=== PATIENT | female | born 1945 | race Caucasian/White ===

== ENCOUNTER → 2016-06-09 | Outpatient (CLI) | payer MEDICARE ==
--- NOTE | 2016-06-09 14:35 | Diagnostic Imaging Report ---
PROCEDURE: US Bilateral lower extremity arterial. TECHNIQUE: Multiple real-time grayscale images are obtained through both lower extremity arterial systems with color Doppler imaging and color Doppler spectral analysis. INDICATION: Cramping in the upper legs worse on the left side. FINDINGS: Grayscale images demonstrate minimal atherosclerotic plaque in the femoropopliteal segments seen bilaterally. Color Doppler demonstrates patency of the vessels from the common femoral to the dorsalis pedis and posterior tibial arteries on both sides. On the right side, there are biphasic waveforms throughout with transition to monophasic waveforms in the dorsalis pedis. There is increased velocity to 280 cm/s in the mid right SFA compatible with focal moderate stenosis. The velocities in the left lower extremity range from 111 to 194 cm/s. There are biphasic waveforms seen throughout. IMPRESSION: Elevated velocity in the mid right SFA suggestive of underlying moderate focal stenosis. There are biphasic waveforms seen throughout the vessels bilaterally with transition to monophasic waveform in the right dorsalis pedis artery. Dictated by: Dictated on workstation # [id number]
== END ==
LOC: RAD 11:53
PROVIDERS: ATTEND Family Medicine
DX: I70.213 Atherosclerosis of native arteries of extremities with intermittent claudication, bilateral legs (principal)
CPT/HCPCS: 93925

== ENCOUNTER 2018-01-18 12:04 | Emergency (ER) | payer MEDICARE ==
[~2018-01-18] VITALS: Ht 175.3 cm; Wt 67.6 kg
--- OUTSIDE RECORDS SUMMARY | 2018-01-18 12:08 | XMS REPORT ---
Author Author SLICK WINKLRE Organization [facility] Address [address] [place] [address] Care Team Providers Care Security Systems Engineer Name Role Phone SLICK WINKLER Unavailable PROBLEMS Type Condition ICD9-CM Code [id number] Code Onset Dates Condition Status SNOMED Code Problem Generalized anxiety disorder F41.1 Active 84435399 Problem PTSD (post-traumatic stress disorder) F43.10 Active 90833346 Problem Moderate episode of recurrent major depressive disorder F33.1 Active [id number] ALLERGIES No Information ENCOUNTERS Encounter Location Date Diagnosis [facility] [address], [place] [address] Nov, 2017 [facility] [address] [place] [phone] Oct, Moderate episode of recurrent major depressive disorder F33.1 ; Generalized anxiety disorder F41.1 and PTSD (post-traumatic stress disorder) F43.10 [facility] [address], [place] [address] 18 Nov, 2016 IMMUNIZATIONS No Known Immunizations SOCIAL HISTORY Never Assessed REASON FOR VISIT intake PLAN OF CARE Activity Details Follow Up 3 Weeks Reason: VITAL SIGNS MEDICATIONS Medication Instructions Dosage Frequency Start Date End Date Duration Status Diphenatol 2.5-0.025 MG Orally Four times a day 1 tablet as needed 6h Active Percocet 2.5-325 MG Orally every 6 hrs 1 tablet as needed 6h Active Lisinopril 10 MG Orally Once a day 1 tablet 24h 30 day(s) Active Diazepam 5 MG Orally Twice a day 1 tablet as needed 12h Active RESULTS No Results PROCEDURES Procedure Date Ordered Result Body Site [facility] VISIT [facility]ENTAL [facility] NEW PT Nov 16, 2017 Psych diagnostic evaluation, new patient Nov 16, 2017 INSTRUCTIONS MEDICATIONS ADMINISTERED No Known Medications
[2018-01-18] MEDS: NS IV 1000 ML 1,000 ML IV SCH (12:13)
[2018-01-18] MEDS: FAMOTIDINE 20MG/2ML IV (PEPCID) IVP ONE (12:14)
[2018-01-18] MEDS: diphenhydrAMINE 50 MG/ML INJ (BENADRYL) IVP ONE (12:14)
[2018-01-18] MEDS: methylPREDNISolone 125 MG (Solu-MEDROL) VIAL IVP ONE (12:14)
--- NOTE | 2018-01-18 12:59 | ED Integumentary General ---
General Chief Complaint: Allergic Reaction Stated Complaint: ALLERGIC REACTION Nursing Triage Note: PT WAS STATRTED ON CEPHALEXIN TODAY BY PCP. FIRST DOSE TAKEN ONE HOUR DEBEAKER. PT STATES SHE IS ALLERGIC TO THE MEDICATION SHE WAS PRESCRIBED, TOOK ONE DOSE BEFORE RALIZING THIS. STATES THE PREVIOUS REACTIONS HAVE BEEN SEVERE. PT PRESENTS WITH SCANT HIVES TO THE TORSO. Source: patient Exam Limitations: no limitations History of Present Illness Date Seen by Provider: Jan 18, 2018 Time Seen by Provider: 12:08 Initial Comments Patient is a 72-year-old female who presents to the emergency room with complaints of allergic reaction cephalexin. She has a known allergy to penicillins and Keflex but did not realize that cephalexin was the same medications as Keflex. She's been prescribed this for a urinary tract infection. She took one dose and then started to itch. She has hives to her torso area and generalized itching. Denies shortness of breath, throat or tongue swelling. She carries an EpiPen for allergic reactions but did not use it today denies taking any medications prior to arrival. Location: torso Possible Cause: exposure to allergen Associated Symptoms: hives, other (itching) Allergies and Home Medications Allergies Coded Allergies: Penicillins (Verified Allergy, Unknown, 01/18/18) cephalexin (Verified Allergy, Unknown, 01/18/18) Home Medications Nitrofurantoin Monohyd/M-Cryst 100 Mg Capsule, 1 TAB PO BID Prescribed by: MALINI LIVINGSTON on 01/18/18 7293 Patient Home Medication List Home Medication List Reviewed: Yes Review of Systems Review of Systems Constitutional: no symptoms reported, see HPI Skin: see HPI, pruritus, other (hives) All Other Systems Reviewed Negative Unless Noted: Yes Past Bhrmoiw-Ilxwkk-Uqnpfm Hx Past Med/Social Hx: Reviewed Nursing Past Med/Soc Hx Patient Social History Alcohol Use: Denies Use Recreational Drug Use: No Smoking Status: Current Everyday Smoker Type Used: Cigarettes 2nd Hand Smoke Exposure: No Recent Foreign Travel: No Contact w/Someone Who Travel: No Recent Infectious Disease Expo: No Recent Hopitalizations: No Seasonal Allergies Seasonal Allergies: No Past Medical History Surgeries: Yes Gallbladder, Thyroidectomy Respiratory: Yes (HAY FEVER) Hypertension Neurological: No : No 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 Genitourinary: No Gastrointestinal: Yes (CHRONIC UTI) Musculoskeletal: No Endocrine: No HEENT: No Cancer: Yes Ovarian Did You Recieve Any Treatments: Yes What Type of Treatment Did You: Surgical Intervention Integumentary: No Family Medical History Reviewed Nursing Family Hx Physical Exam Vital Signs Vital Signs - First Documented 01/18/18 01/18/18 12:08 14:44 Temp 98.3 Pulse 92 Resp 20 B/P (MAP) 160/63 (95) Pulse Ox 90 O2 Delivery Room Air O2 Flow Rate 2.00 Capillary Refill : Less Than 3 Seconds General Appearance: WD/WN, no apparent distress Cardiovascular: normal peripheral pulses, regular rate, rhythm, no edema, no gallop, no JVD, no murmur Respiratory: chest non-tender, lungs clear, normal breath sounds, no respiratory distress, no accessory muscle use Neurologic/Psychiatric: alert, normal mood/affect, oriented x 3 Skin: normal color, warm/dry Skin Problem Location: generalized, torso Skin Problem Character: urticarial (generalized itching), other (scant hives across her chest and abdomen.) Progress/Results/Core Measures Results/Orders My Orders Orders - MALINI LIVINGSTON Diphenhydramine Injection (Benadryl Inje (01/18/18 12:15) Famotidine Injection (Pepcid Injection) (01/18/18 12:15) Methylprednisolone Sod Succ (Solu-Medrol (01/18/18 12:15) Ns Iv 1000 Ml (Sodium Chloride 0.9%) (01/18/18 12:15) Medications Given in ED Current Medications Medications Dose Ordered Sig/Lakisha Route Start Time Stop Time Status Last Admin Dose Admin Diphenhydramine HCl 50 mg ONCE ONCE IVP 01/18/18 12:15 01/18/18 12:16 DC 01/18/18 12:14 50 MG Famotidine 20 mg ONCE ONCE IVP 01/18/18 12:15 01/18/18 12:16 DC 01/18/18 12:14 20 MG Methylprednisolone Sodium Succinate 125 mg ONCE ONCE IVP 01/18/18 12:15 01/18/18 12:16 DC 01/18/18 12:14 125 MG Vital Signs/I&O 01/18/18 01/18/18 12:08 14:44 Temp 98.3 98.3 Pulse 92 92 Resp 20 20 B/P (MAP) 160/63 (95) 127/76 (93) Pulse Ox 90 96 O2 Delivery Room Air Nasal Cannula O2 Flow Rate 2.00 Blood Pressure Mean: 95 Progress Progress Note : Time: 13:52 Progress Note Patient has remained free of signs of anaphylaxis. Her hives have completely resolved at this time. She has no longer itching. She agrees with plans of discharge, plans for follow-up with her primary care provider. Return precautions were given. I will be changing her antibiotic to Macrobid. Departure Impression Primary Impression: Allergic reaction caused by a drug Disposition: 01 HOME, SELF-CARE Condition: Stable/Unchanged Departure-Patient Inst. Decision time for Depature: 13:53 Referrals: Christo FIELDS DO (PCP) Primary Care Physician Patient Instructions: Drug Allergy Add. Discharge Instructions: Take medication as directed. He may continue to use Benadryl 25-50 mg every 4-6 hours as needed for itching relief. Use your EpiPen as needed. Return back to the emergency room for any worsening symptoms or concerns as needed. Follow-up with your primary care provider within 1 week for recheck. All discharge instructions reviewed with patient and/or family. Voiced understanding. Scripts Nitrofurantoin Monohyd/M-Cryst (Macrobid 100 mg Capsule) 100 Mg Capsule 1 TAB PO BID for 7 Days, #14 CAP Prov: MALINI LIVINGSTON 01/18/18 MALINI LIVINGSTON Jan 18, 2018 12:59
[2018-01-18] MEDS ORDERED: NITR-65 PO (13:54)
[2018-01-18 14:44] VITALS: BP 127/76
== END 2018-01-18 14:46 | disposition home or self-care (01) ==
LOC: EDUNIT# 12:04 → ER 12:05
DX: L29.9 Pruritus, unspecified (principal); T36.1X5A Adverse effect of cephalosporins and other beta-lactam antibiotics, initial encounter; I10 Essential (primary) hypertension; F17.210 Nicotine dependence, cigarettes, uncomplicated; Z88.0 Allergy status to penicillin; Z85.43 Personal history of malignant neoplasm of ovary; Z87.440 Personal history of urinary (tract) infections; Z90.89 Acquired absence of other organs; Z87.448 Personal history of other diseases of urinary system; Z88.1 Allergy status to other antibiotic agents

== ENCOUNTER 2019-07-06 01:21 | Emergency (ER) | payer MEDICARE, MEDICAID ==
[~2019-07-06] VITALS: Ht 175 cm; Wt 68.0 kg
[~2019-07-06 01:21] MED LIST: NITR-65 PO
[2019-07-06] MEDS ORDERED: OXYC-465 (01:32)
[2019-07-06] MEDS ORDERED: LISI-552 (01:32)
[2019-07-06] MEDS ORDERED: MIRA50TA (01:32)
[2019-07-06] MEDS ORDERED: KETO15CR2 (01:32)
[2019-07-06] MEDS ORDERED: LACTATED RINGERS 1,000 ML IV ONE (01:32)
[2019-07-06] MEDS ORDERED: NITR100C (01:32)
[2019-07-06] MEDS ORDERED: LEVO100T7 (01:32)
[2019-07-06] MEDS ORDERED: DIAZ5TAB49 (01:32)
[2019-07-06] MEDS ORDERED: DIPH1TAB25 (01:32)
[2019-07-06] MEDS ORDERED: ONDANSETRON 4 MG/2 ML (SDV) Z0FRAN IVP ONE (01:45)
[2019-07-06 01:46] LABS: BILIRUBIN,URINE NEGATIVE (NEGATIVE); CLARITY,URINE CLEAR; COLOR,URINE YELLOW; GLUCOSE, URINE (UA) NEGATIVE (NEGATIVE); KETONES,URINE NEGATIVE (NEGATIVE); LEUKOCYTE ESTERASE ,URINE NEGATIVE (NEGATIVE); NITRITE,URINE NEGATIVE (NEGATIVE); PH,URINE 5.5 (5-9); PROTEIN,URINE NEGATIVE (NEGATIVE)
--- NOTE | 2019-07-06 02:06 | ED General ---
General Chief Complaint: Psych/Social Disorder Stated Complaint: DIZZY Nursing Triage Note: c/o anxiety, dizziness, nausea, headache, lower back pain. [place] [facility] [place] with [place]i but has not started abx. Nursing Sepsis Screen: No Definite Risk Source of Information: Patient (PT IS A VERY POOR AND DIFFICULT HISTORIAN) History of Present Illness Date Seen by Provider: July 06, 2019 Time Seen by Provider: 01:24 Initial Comments PT ARRIVES VIA EMS FROM HOME PT STATES SHE HAS BEEN NAUSEATED AND DIZZY SINCE 1999 TONIGHT STATES SHE "VOMITED ONE TIME" 3 DAYS AGO, NONE SINCE STATES SHE HAD DIARRHEA X 1 YESTERDAY AND THEN TOOK AN ANTIDIARRHEAL PILL ( PT STATES SHE GETS CONSTIPATED AND SHE TAKES LAXATIVES, THEN SHE HAS DIARRHEA SO SHE TAKES AN ANTIDIARRHEA PILL, THEN GETS CONSTIPATED SO SHE TAKES ANOTHER LAXATIVE --THIS IS CHRONIC ISSUE) NO ABDOMINAL PAIN NO PROBLEMS URINATING, NO PAIN ON URINATION C/O CHRONIC LOW BACK PAIN--TAKES OXYCODONE DAILY FOR IT AND TOOK ONE TONIGHT, STATES PAIN IS NO DIFFERENT THAN HER NORMAL PAIN NO CHEST PAIN NO SHORTNESS OF BREATH NO PALPITATIONS NO COUGH NO FEVER/SWEATS/CHILLS NO SWELLING IN LEGS/ FEET OR PAIN IN CALVES DENIES HEADACHE TO ME NO VISION CHANGES NO PARESTHESIAS OR MOTOR DEFICITS NO PROBLEMS WALKING NO PROBLEMS SWALLOWING OR TALKING NO KNOWN SICK CONTACTS OR EXPOSURE TO COVID-19. DENIES RECENT TRAVEL WENT TO [facility] YESTERDAY--IS UNCLEAR WHAT SYMPTOMS SHE WAS HAVING AT THAT TIME, WAS DX WITH UTI AND GIVEN RX FOR MACROBID/NITROFURANTOIN, BUT HAS NOT TAKEN ANY, EVEN THOUGH SHE PICKED UP THE PRESCRIPTION. STATES "I'M AFRAID TO TAKE IT--I DON'T KNOW WHAT IT IS" REPEATS SEVERAL TIMES "THEY TOLD ME AT [facility] I HAD 2 STROKES ON THE XRAY" --PT IS UNABLE TO ELABORATE ON THIS PCP: DR. FIELDS IN [place] Allergies and Home Medications Allergies Coded Allergies: Penicillins (Verified Allergy, Unknown, 01/18/18) cephalexin (Verified Allergy, Unknown, 01/18/18) Home Medications Nitrofurantoin Monohyd/M-Cryst 100 Mg Capsule, 1 TAB PO BID Prescribed by: MALINI LIVINGSTON on 01/18/18 5074 Ondansetron 4 Mg Tab.rapdis, 4 MG PO Q4H Prescribed by: DOMINGO KOHLER on 07/06/19557 Pantoprazole Sodium 40 Mg Tablet.dr, 40 MG PO DAILY Prescribed by: DOMINGO KOHLER on 07/06/19557 Patient Home Medication List Home Medication List Reviewed: Yes Review of Systems Review of Systems Constitutional: see HPI; No chills, No diaphoresis; dizziness; No fever, No malaise; weakness EENTM: no symptoms reported; No ear pain, No blurred vision, No nose congestion, No throat pain Respiratory: no symptoms reported; No cough, No short of breath, No wheezing Cardiovascular: no symptoms reported; No chest pain, No edema, No palpitations, No syncope, No vascular heart diseas Gastrointestinal: see HPI; No abdominal pain, No loss of appetite; nausea Genitourinary: see HPI (BUT DENIES ANY SYMPTOMS); No dysuria, No pain Musculoskeletal: see HPI, back pain (CHRONIC LOW BACK PAIN ) Skin: no symptoms reported; No pruritus, No rash Psychiatric/Neurological: No Symptoms Reported; Denies Headache, Denies Numbness, Denies Paresthesia, Denies Seizure, Denies Tingling, Denies Tremors, Denies Weakness Hematologic/Lymphatic: No Symptoms Reported Immunological/Allergic: no symptoms reported Past Zgtcdpq-Vrgqib-Muxdfr Hx Past Med/Social Hx: Reviewed and Corrections made Patient Social History Alcohol Use: Past History (STATES SHE USED TO DRINK ALOT, "BUT NOT FOR 30 YEARS) Recreational Drug Use: No Smoking Status: Current Everyday Smoker (ROLLS HER OWN AND SMOKES AT LEAST 20 A DAY) Type Used: Cigarettes 2nd Hand Smoke Exposure: No Recent Foreign Travel: No Contact w/Someone Who Travel: No Recent Infectious Disease Expo: No Recent Hopitalizations: No Physical Abuse: No Sexual Abuse: No Mistreated: No Fear: No Immunizations Up To Date Tetanus Booster (TDap): Unknown Seasonal Allergies Seasonal Allergies: No Past Medical History Surgeries: Yes (SEE BELOW) Appendectomy, Gallbladder, Hysterectomy, Oophorectomy, Orthopedic, Thyroidectomy Respiratory: No Cardiac: Yes Hypertension Neurological: No : No Reproductive Disorders: Yes 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, 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 Genitourinary: Yes Bladder Infection, UTI-Chronic Gastrointestinal: Yes (CONSTANT USE OF LAXATIVES AND ANTIDIARRHEALS) Chronic Constipation, Chronic Diarrhea Musculoskeletal: Yes Arthritis, Chronic Back Pain Endocrine: Yes Hypothyroidsim HEENT: No Cancer: Yes Ovarian Did You Recieve Any Treatments: Yes What Type of Treatment Did You: Surgical Intervention Psychosocial: Yes Anxiety Integumentary: No Blood Disorders: No Family Medical History PSH: -LOWER LUMBAR SURGERY > 10 YEARS AGO -RIGHT FOOT SURGERY -LEFT HAND SURGERY -HYSTERECTOMY/BILATERAL SALPINGO-OOPHORECTOMY -APPENDECTOMY -CHOLECYSTECTOMY Physical Exam Vital Signs Vital Signs - First Documented 07/06/19 01:25 Temp 36.4 Pulse 82 Resp 18 B/P (MAP) 164/71 (102) Pulse Ox 98 O2 Delivery Room Air Capillary Refill : Less Than 3 Seconds Height, Weight, BMI Height: 5'9.00" Weight: 149lbs. oz. 67.444194om; 22.00 BMI Method:Stated General Appearance: No Apparent Distress, WD/WN, Anxious HEENT: PERRL/EOMI, Normal ENT Inspection Neck: Full Range of Motion, Normal Inspection, Non Tender, Supple; No Carotid Bruit, No JVD Respiratory: Normal Breath Sounds, No Accessory Muscle Use, No Respiratory Distress Cardiovascular: No Edema, No Gallop, No JVD, No Murmur, Normal Peripheral Pu lses, Irregularly Irregular Gastrointestinal: Normal Bowel Sounds, No Organomegaly, No Pulsatile Mass, Non Tender, Soft Back: No CVA Tenderness Extremity: Normal Capillary Refill, Normal Inspection, Normal Range of Motion, Non Tender, No Calf Tenderness, No Pedal Edema Neurologic/Psychiatric: Alert, Oriented x3, No Motor/Sensory Deficits, wrapper layer and examiner soft work II- XII Norm as Tested; No Abnormal Gait; Other (ANXIOUS) Skin: Normal Color, Warm/Dry; No Rash Progress/Results/Core Measures Suspected Sepsis Recent Fever Within 48 Hours: No Infection Criteria Present: Documented Infection New/Unexplained Altered Menta: No Sepsis Screen: No Definite Risk SIRS Temperature: Pulse: 82 Respiratory Rate: 18 Laboratory Tests 07/06/19 01:33: White Blood Count 5.6 Blood Pressure 164 /71 Mean: 102 Laboratory Tests 07/06/19 01:33: Creatinine 0.99, INR Comment 0.9, Platelet Count 394, Total Bilirubin 0.2 Results/Orders Lab Results Laboratory Tests Test 07/06/19 01:33 Range/Units White Blood Count 5.6 4.3-11.0 10^3/uL Red Blood Count 4.38 4.35-5.85 10^6/uL Hemoglobin 13.5 11.5-16.0 G/DL Hematocrit 42 35-52 % Mean Corpuscular Volume 95 80-99 FL Mean Corpuscular Hemoglobin 31 25-34 PG Mean Corpuscular Hemoglobin Concent 32 32-36 G/DL Red Cell Distribution Width 13.9 10.0-14.5 % Platelet Count 394 130-400 10^3/uL Mean Platelet Volume 10.2 7.4-10.4 FL Neutrophils (%) (Auto) 31 L 42-75 % Lymphocytes (%) (Auto) 53 H 12-44 % Monocytes (%) (Auto) 13 H 0-12 % Eosinophils (%) (Auto) 2 0-10 % Basophils (%) (Auto) 1 0-10 % Neutrophils # (Auto) 1.8 1.8-7.8 X 10^3 Lymphocytes # (Auto) 3.0 1.0-4.0 X 10^3 Monocytes # (Auto) 0.7 0.0-1.0 X 10^3 Eosinophils # (Auto) 0.1 0.0-0.3 10^3/uL Basophils # (Auto) 0.0 0.0-0.1 10^3/uL Prothrombin Time 11.9 L 12.2-14.7 SEC INR Comment 0.9 0.8-1.4 Activated Partial Thromboplast Time 31 24-35 SEC Urine Color YELLOW Urine Clarity CLEAR Urine pH 5.5 5-9 Urine Specific [place] <=1.005 1.016-1.022 Urine Protein NEGATIVE NEGATIVE Urine Glucose (UA) NEGATIVE NEGATIVE Urine Ketones NEGATIVE NEGATIVE Urine Nitrite NEGATIVE NEGATIVE Urine Bilirubin NEGATIVE NEGATIVE Urine Urobilinogen 0.2 < = 1.0 MG/DL Urine Leukocyte Esterase NEGATIVE NEGATIVE Urine RBC (Auto) NEGATIVE NEGATIVE Urine RBC NONE /HPF Urine WBC NONE /HPF Urine Squamous Epithelial Cells 2-5 /HPF Urine Crystals NONE /LPF Urine Bacteria FEW H /HPF Urine Casts NONE /LPF Urine Mucus NEGATIVE /LPF Urine Culture Indicated YES Sodium Level 141 135-145 MMOL/L Potassium Level 4.0 3.6-5.0 MMOL/L Chloride Level 107 98-107 MMOL/L Carbon Dioxide Level 22 21-32 MMOL/L Anion Gap 12 5-14 MMOL/L Blood Urea Nitrogen 11 7-18 MG/DL Creatinine 0.99 0.60-1.30 MG/DL Estimat Glomerular Filtration Rate 55 BUN/Creatinine Ratio 11 Glucose Level 98 70-105 MG/DL Calcium Level 8.7 8.5-10.1 MG/DL Corrected Calcium 8.9 8.5-10.1 MG/DL Magnesium Level 2.0 1.6-2.4 MG/DL Total Bilirubin 0.2 0.1-1.0 MG/DL Aspartate Amino Transf (AST/SGOT) 25 5-34 U/L Alanine Aminotransferase (ALT/SGPT) 21 0-55 U/L Alkaline Phosphatase 67 40-136 U/L Troponin I < 0.028 <0.028 NG/ML Total Protein 7.2 6.4-8.2 GM/DL Albumin 3.8 3.2-4.5 GM/DL Amylase Level 22 L 25-125 U/L Lipase 30 8-78 U/L Free Thyroxine 1.37 0.70-1.48 NG/DL TSH [place] Testing 0.03 L 0.35-4.94 UIU/ML My Orders Orders - DOMINGO KOHLER DO Ed Iv/Invasive Line Start (07/06/19 01:32) Ekg Tracing (07/06/19:32) Monitor-Rhythm Ecg Trace Only (07/06/19:32) Amylase (07/06/19:32) Cbc With Automated Diff (07/06/19:32) Comprehensive Metabolic Panel (07/06/19:32) Lipase (07/06/19:32) Magnesium (07/06/19:32) Protime With Inr (07/06/19:32) Partial Thromboplastin Time (07/06/19:32) Ua Culture If Indicated (07/06/19:32) Troponin I (07/06/19:32) Ed Iv/Invasive Line Start (07/06/19:32) Lactated Ringers (Lr 1000 Ml Iv Solution (07/06/19 01:32) Ondansetron Injection (Zofran Injectio (07/06/19 01:45) Chest 1 View, Ap/Pa Only (07/06/19 02:31) Thyroid Analyzer (07/06/19:33) Urine Culture (07/06/19 01:33) Free T4 (Free Thyroxine) (07/06/19 01:33) Ct Head Wo (07/06/19 03:13) Ct Trinh Chest/Noang Abd-Pelv W (07/06/19 03:15) Iohexol Injection (Omnipaque 350 Mg/Ml 1 (07/06/19 04:30) Received Contrast (Hold Metformin- Contr (07/06/19 04:30) Ns (Ivpb) (Sodium Chloride 0.9% Ivpb Bag (07/06/19 04:30) Medications Given in ED Current Medications Medications Dose Ordered Sig/Lakisha Route Start Time Stop Time Status Last Admin Dose Admin Iohexol 100 ml ONCE ONCE IV 07/06/19 04:30 07/06/19 04:32 DC 07/06/19 04:34 100 ML Lactated Ringer's 1,000 ml @ 0 mls/hr Q0M ONCE IV 07/06/19 01:32 07/06/19 01:35 DC 07/06/19 01:37 0 MLS/HR Ondansetron HCl 4 mg ONCE ONCE IVP 07/06/19 01:45 07/06/19 01:46 DC 07/06/19 01:40 4 MG Sodium Chloride 100 ml ONCE ONCE IV 07/06/19 04:30 07/06/19 04:32 DC 07/06/19 04:34 80 ML Vital Signs/I&O 07/06/19 01:25 Temp 36.4 Pulse 82 Resp 18 B/P (MAP) 164/71 (102) Pulse Ox 98 O2 Delivery Room Air Capillary Refill : Less Than 3 Seconds Blood Pressure Mean: 102 Progress Note : Progress Note PT URINATED MULTIPLE TIMES DURING ER STAY WALKS WITHOUT ANY DIFFICULTY PT GIVEN IV FLUIDS AND ZOFRAN PT HAD NO COMPLAINTS OF ANY KIND DURING ENTIRE ER STAY ECG Initial ECG Impression Date: July 06, 2019 Initial ECG Impression Time: 02:13 Initial ECG Rate: 73 Initial ECG Rhythm: A Fib/Flutter Initial ECG Impression: Nonspecific Changes Initial ECG Comparisson: No Previous ECG Available Diagnostic Imaging Comments CXR--NO ACUTE PROCESS, PENDING RADIOLOGIST REVIEW CT HEAD--NO ACUTE PROCESS, ATROPHY AND SMALL VESSEL ISCHEMIC CHANGES, PER [facility] VIA FAX [place] 0572 CT CHEST ANGIOGRAM/ ABDOMEN AND PELVIS--NO ACUTE PROCESS, NO P.E. OR AORTIC DISSECTION, 1.6 CM RIGHT LUNG MASS, AORTIC CALCIFICATIONS WITH FOCAL / IRREGULAR PLAQUE VS TINY FOCAL DISSECTION IN POSTERIOR ABDOMINAL AORTA, OTHER NON-ACUTE FINDINGS--PER [facility] VIA FAX AT 3845 Reviewed: Reviewed by Me Departure Impression Primary Impression: Nausea Additional Impressions: Abnormal finding on CT scan Mass of right lung Disposition: HOME, SELF-CARE Condition: Improved Departure-Patient Inst. Referrals: Christo FIELDS DO (PCP/Family) Primary Care Physician Patient Instructions: Nausea and Vomiting, Adult (DC), Pulmonary Nodule Add. Discharge Instructions: TAKE YOUR MEDICATIONS PRESCRIBED FOLLOW UP WITH DR. FIELDS IN THE NEXT FEW DAYS FOR FURTHER CARE RETURN TO ER IF SYMPTOMS WORSEN All discharge instructions reviewed with patient and/or family. Voiced understanding. Scripts Pantoprazole Sodium (Protonix) 40 Mg Tablet. 40 MG PO DAILY, #15 TAB Prov: DOMNIGO KOHLER DO 07/06/19 Ondansetron (Ondansetron Odt) 4 Mg Tab.rapdis 4 MG PO Q4H for Nausea/Vomiting, #10 TAB Prov: DOMINGO KOHLER DO 07/06/19 DOMINGO KOHLER DO July 06, 2019 02:06
[2019-07-06 02:09] LABS: INR 0.9 (0.8-1.4); PROTHROMBIN TIME PATIENT 11.9 SEC (12.2-14.7)
[2019-07-06 02:29] LABS: BASOPHILS % (AUTO) 1 % (0-10); EOSINOPHILS # (AUTO) 0.1 10^3/uL (0.0-0.3); EOSINOPHILS % (AUTO) 2 % (0-10); HEMATOCRIT 42 % (35-52); HEMOGLOBIN 13.5 G/DL (11.5-16.0); LYMPHOCYTES % (AUTO) 53 % (12-44); MEAN CORPUSCULAR HEMOGLOBIN 31 PG (25-34); MEAN CORPUSCULAR HGB CONC 32 G/DL (32-36); MEAN CORPUSCULAR VOLUME 95 FL (80-99); MEAN PLATELET VOLUME 10.2 FL (7.4-10.4); MONOCYTES # (AUTO) 0.7 X 10^3 (0.0-1.0); MONOCYTES % (AUTO) 13 % (0-12); NEUTROPHILS # (AUTO) 1.8 X 10^3 (1.8-7.8); NEUTROPHILS % (AUTO) 31 % (42-75); PLATELET COUNT 394 10^3/uL (130-400); RED CELL DISTRIBUTION WIDTH 13.9 % (10.0-14.5); WHITE BLOOD COUNT 5.6 10^3/uL (4.3-11.0)
[2019-07-06 02:34] LABS: ALBUMIN 3.8 GM/DL (3.2-4.5); CHLORIDE 107 MMOL/L (98-107); SODIUM 141 MMOL/L (135-145)
[2019-07-06 02:35] LABS: CALCIUM 8.7 MG/DL (8.5-10.1)
[2019-07-06 02:36] LABS: AMYLASE 22 U/L (25-125)
[2019-07-06 02:37] LABS: GLUCOSE 98 MG/DL (70-105); TOTAL PROTEIN 7.2 GM/DL (6.4-8.2)
[2019-07-06 02:38] LABS: BILIRUBIN,TOTAL 0.2 MG/DL (0.1-1.0); CARBON DIOXIDE 22 MMOL/L (21-32)
[2019-07-06 02:40] LABS: ALKALINE PHOSPHATASE 67 U/L (40-136); CREATININE SERUM 0.99 MG/DL (0.60-1.30); GFR ESTIMATED 55
[2019-07-06 02:41] LABS: BUN/CREATININE RATIO 11
[2019-07-06 02:43] LABS: ALANINE AMINOTRANSFERASE 21 U/L (0-55)
[2019-07-06 02:44] LABS: LIPASE 30 U/L (8-78)
[2019-07-06 02:47] LABS: BACTERIA,URINE FEW /HPF
[2019-07-06 03:09] LABS: TSH (THYROID ANALYZER) 0.03 UIU/ML (0.35-4.94)
[2019-07-06 04:01] LABS: FREE T4 (FREE THYROXINE) 1.37 NG/DL (0.70-1.48)
[2019-07-06] MEDS ORDERED: HOLD METFORMIN - RECEIVED CONTRAST 20 ML VIAL IV SCH (04:30)
[2019-07-06] MEDS ORDERED: IOHEXOL 350 MG/ML 100 ML (OMNIPAQUE 350) VIAL IV ONE (04:30)
[2019-07-06] MEDS ORDERED: NS 100 ML (IVPB) BAG IV ONE (04:30)
--- NOTE | 2019-07-06 05:39 | Diagnostic Imaging Report ---
CLINICAL INDICATION: Patient with anxiety, dizziness, nausea, headache and lower back pain. EXAM: Axial CT scan of the brain without IV contrast. Auto Exposure Controls were utilized during the CT exam to meet ALARA standards for radiation dose reduction. COMPARISON: None. FINDINGS: There is no gross CT evidence of acute cerebral infarct, intracranial hemorrhage, or gross mass effect. There is diffuse brain parenchymal volume loss. There is diffuse patchy and confluent areas of low-attenuation white matter changes seen throughout both cerebral hemispheres. There are small areas of chronic cerebral infarcts involving the right frontal lobe and right parietal lobe. There is normal mayorga-white matter distinction. There is no significant midline shift or herniation. There is no evidence of hydrocephalus. The basal cisterns are unremarkable. The skull, extracranial soft tissue, and orbits are unremarkable. The paranasal sinuses are unremarkable. Temporal bones show no significant abnormality. IMPRESSION: 1: There is diffuse low-attenuation white matter changes troubles cerebral hemispheres. This may be related to chronic small vessel ischemic disease and leukoaraiosis. Given the extensive finding, other etiology such as leukoencephalopathy of unknown etiology may be considered. Comparison to prior brain imaging would help better evaluate for chronicity. 2: There is no definite CT evidence of interval acute cerebral infarction, intracranial hemorrhage, or mass seen. Given the diffuse low attenuation changes throughout the brain parenchyma which can obscure more subtle findings, if there is continued concern for acute cerebral infarction, MRI of the brain would better evaluate. 3: There are small chronic cerebral infarcts involving the right frontal lobe and right parietal lobe. Dictated by: Dictated on workstation # [id number]
[2019-07-06] MEDS ORDERED: ONDA4TAB11 PO (05:58)
[2019-07-06] MEDS ORDERED: PANT40TA2 PO (05:58)
[2019-07-06 06:04] VITALS: BP 125/65
--- NOTE | 2019-07-06 06:46 | Diagnostic Imaging Report ---
CLINICAL INDICATION: Patient with anxiety, dizziness, nausea, headache and lower back pain. EXAM: Portable chest x-ray upright view. COMPARISONS: None. FINDINGS: Lungs/pleura: Suspected mild bibasilar atelectasis. Lungs are clear. There is no pneumothorax. There is no pleural effusion. Mediastinum: Unremarkable. Pulmonary vasculature: Unremarkable. Heart: Unremarkable. Bones/extrathoracic soft tissue: There are degenerative spurs involving the thoracic spine. IMPRESSION: Suspected mild bibasilar atelectasis. There is no radiographic evidence of acute cardiopulmonary process. Dictated by: Dictated on workstation # [id number]
--- NOTE | 2019-07-06 07:14 | Diagnostic Imaging Report ---
INDICATION: Low back pain, nausea CTA chest, abdomen and pelvis Thin axial sections through the chest, abdomen and pelvis are obtained following intravenous contrast bolus. Multiplanar MIP images were reconstructed and reviewed. There are emphysematous changes in the lungs. There is a 1.6 cm mass in the right apex suspicious for neoplasm. There are no pathologically enlarged hilar or mediastinal lymph nodes. There are no pulmonary emboli. There is some calcific atherosclerosis of the thoracic aorta but no aneurysm or dissection. There are no effusions or pneumothoraces. IMPRESSION: Emphysema. Right upper lobe nodule suspicious for neoplasm. CT abdomen pelvis: The liver has a few granulomas. There are no masses seen. Gallbladder is surgically absent. Common duct is mildly dilated which is probably compensatory. Pancreas is atrophied. Spleen is not enlarged. It contains a few calcified granulomas. Adrenal glands appear normal. There are some cortical scarring lateral margin of the left kidney. There is no mass, calculus or hydronephrosis. There is some calcific atherosclerosis of aorta but no aneurysm. There is some ulcerated plaque present but no dissection. The celiac and superior mesenteric arteries are widely patent. Renal arteries are widely patent. Inferior mesenteric artery is patent. Iliac arteries are widely patent. The femoral bifurcations are unremarkable Small bowel is not dilated. There is a moderate amount of stool in the colon. There is minimal colonic diverticulosis. There is no evidence of diverticulitis. There is no intraperitoneal free air or free fluid. The appendix is normal. IMPRESSION: No acute abnormality seen in the abdomen or pelvis. I agree with preliminary interpretation. Dictated by: Dictated on workstation # [id number]
== END 2019-07-06 06:06 | disposition home or self-care (01) ==
LOC: EDUNIT# 01:21 → ER 01:23
DX: R11.2 Nausea with vomiting, unspecified (principal); R91.8 Other nonspecific abnormal finding of lung field; R93.5 Abnormal findings on diagnostic imaging of other abdominal regions, including retroperitoneum; K59.09 Other constipation; M54.5 Low back pain; G89.29 Other chronic pain; F17.210 Nicotine dependence, cigarettes, uncomplicated; Z88.0 Allergy status to penicillin; Z88.1 Allergy status to other antibiotic agents; Z87.440 Personal history of urinary (tract) infections; Z85.43 Personal history of malignant neoplasm of ovary; Z91.14 Patient's other noncompliance with medication regimen; Z90.710 Acquired absence of both cervix and uterus
CPT/HCPCS: 36415; 70450; 71045; 71275; 74177; 80053; 81000; 82150; 83690; 83735; 84439; 84443; 84484; 85025; 85610; 85730; 87077; 87088; 87186; 93005; 93041; 96361; 96374

== ENCOUNTER 2022-11-29 12:43 | Emergency (ER) | payer MEDICARE, MEDICAID ==
[~2022-11-29] VITALS: Ht 170.2 cm; Wt 68.0 kg
[~2022-11-29 12:43] MED LIST changes: +DIAZ5TAB49; +DIPH1TAB25; +KETO15CR2; +LEVO100T7; +LISI20TA26; +MIRA50TA; +NITR100C; +ONDA4TAB11 PO; +OXYC-556; +PANT40TA2 PO
[2022-11-29 13:12] LABS: BASOPHILS # (AUTO) 0.1 10^3/uL (0.0-0.1); BASOPHILS % (AUTO) 1 % (0-10); EOSINOPHILS # (AUTO) 0.1 10^3/uL (0.0-0.3); EOSINOPHILS % (AUTO) 2 % (0-10); HEMATOCRIT 47 % (35-52); HEMOGLOBIN 15.4 g/dL (11.5-16.0); LYMPHOCYTES # (AUTO) 2.1 10^3/uL (1.0-4.0); LYMPHOCYTES % (AUTO) 34 % (12-44); MEAN CORPUSCULAR HEMOGLOBIN 31 pg (25-34); MEAN CORPUSCULAR HGB CONC 33 g/dL (32-36); MEAN CORPUSCULAR VOLUME 95 fL (80-99); MEAN PLATELET VOLUME 9.6 fL (9.0-12.2); MONOCYTES # (AUTO) 0.4 10^3/uL (0.0-1.0); MONOCYTES % (AUTO) 7 % (0-12); NEUTROPHILS # (AUTO) 3.5 10^3/uL (1.8-7.8); NEUTROPHILS % (AUTO) 57 % (42-75); PLATELET COUNT 419 10^3/uL (130-400); WHITE BLOOD COUNT 6.1 10^3/uL (4.3-11.0)
--- NOTE | 2022-11-29 13:12 | ED Fall/Injury ---
General Chief Complaint: Trauma-Non Activation Stated Complaint: DIZZINESS | FALL Source: patient Exam Limitations: no limitations History of Present Illness Date Seen by Provider: Nov 29, 2022 Time Seen by Provider: 13:08 Initial Comments Patient is a 77-year-old female with a history of stroke 10 years ago, coronary artery disease, smoking who presents ED for dizziness, nausea and frequent falls. She fell twice yesterday. Once was around 8 pm when she was in the bathtub she states her legs gave out she hit the side of the mirror and then the toilet. This resulted in a injury to her left forehead, and back injury. Denies loss of conscious or on blood thinners. She reports some neck discomfort and low back pain. She had blood from the abrasion that eventually stopped. She fell again on rocks when she tripped hitting her right knee and her right sided head. No loss of consciousness. She had no prior chest pain. She has had frequent falls over the past week. Intermittent dizzy. Denies the room spinning. No current dizziness while sitting she reports loose stool with nausea without any vomiting. She states it feels like her left side is more weak over the past week. Denies of any pain with urination frequent urination, chest pain, shortness of breath, cough, headache or visual changes unilateral numbness. Denies of any numbness and tingling. Patient states she is up-to-date on her tetanus within the past 5 years Allergies and Home Medications Allergies Coded Allergies: Penicillins (Verified Allergy, Unknown, 01/18/18) cephalexin (Verified Allergy, Unknown, 01/18/18) Patient Home Medication List Home Medication List Reviewed: Yes Diazepam (Diazepam) 5 Mg Tablet, (Reported) Entered as Reported by: LOUISE LLOYD on 07/06/19131 Diphenoxylate HCl/Atropine (Diphenoxylate-Atrop 2.5-0.025) 1 Each Tablet, (Reported) Entered as Reported by: LOUISE LLOYD on 07/06/19131 Ketoconazole (Ketoconazole) 15 Gm Cream..g., (Reported) Entered as Reported by: LOUISE LLOYD on 07/06/19131 Levothyroxine Sodium (Levothyroxine Sodium) 100 Mcg Tablet, (Reported) Entered as Reported by: LOUISE LLOYD on 07/06/19131 Lisinopril (Lisinopril) 20 Mg Tablet, (Reported) Entered as Reported by: LOUISE LLOYD on 07/06/19131 Mirabegron (Myrbetriq) 50 Mg Tab.er.24h, (Reported) Entered as Reported by: LOUISE LLOYD on 07/06/19131 Nitrofurantoin Macrocrystal (Nitrofurantoin) 100 Mg Capsule, (Reported) Entered as Reported by: LOUISE LLOYD on 07/06/19131 Nitrofurantoin Monohyd/M-Cryst (Macrobid 100 mg Capsule) 100 Mg Capsule, 1 TAB PO BID Prescribed by: MALINI LIVINGSTON on 01/18/18 1354 Ondansetron (Ondansetron Odt) 4 Mg Tab.rapdis, 4 MG PO Q4H Prescribed by: DOMINGO KOHLER on 07/06/19557 Oxycodone HCl/Acetaminophen (Oxycodone-Acetaminophen 10-325) 1 Each Tablet, (Reported) Entered as Reported by: LOUISE LLOYD on 07/06/19131 Pantoprazole Sodium (Protonix) 40 Mg Tablet.dr, 40 MG PO DAILY Prescribed by: DOMINGO KOHLER on 07/06/19557 Review of Systems Review of Systems Constitutional: No chills, No diaphoresis, No malaise, No weakness Eyes: Denies Blurred Vision, Denies Drainage, Denies Decreased Acuity Ears, Nose, Mouth, Throat: denies ear pain, denies ear discharge Respiratory: No cough, No dyspnea on exertion Gastrointestinal: No abdominal pain; diarrhea, nausea; No vomiting Genitourinary: No decreased output, No discharge Musculoskeletal: No back pain, No joint pain, No joint swelling, No muscle pain Skin: change in color Psychiatric/Neurological: Denies Headache, Denies Numbness Past Quccywk-Kwhusx-Dbtpez Hx Immunizations Up To Date Tetanus Booster (TDap): Unknown Seasonal Allergies Seasonal Allergies: No Past Medical History Surgeries: Yes (SEE BELOW) Appendectomy, Gallbladder, Hysterectomy, Oophorectomy, Orthopedic, Thyroidectomy Respiratory: No Cardiac: Yes Hypertension Neurological: No Reproductive Disorders: Yes 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 History: Hysterectomy, Menopausal Genitourinary: Yes Bladder Infection, UTI-Chronic Gastrointestinal: Yes (CONSTANT USE OF LAXATIVES AND ANTIDIARRHEALS) Chronic Constipation, Chronic Diarrhea Musculoskeletal: Yes Arthritis, Chronic Back Pain Endocrine: Yes Hypothyroidsim HEENT: No Cancer: Yes Ovarian Did You Recieve Any Treatments: Yes What Type of Treatment Did You: Surgical Intervention Psychosocial: Yes Anxiety Integumentary: No Blood Disorders: No Family Medical History PSH: -LOWER LUMBAR SURGERY > 10 YEARS AGO -RIGHT FOOT SURGERY -LEFT HAND SURGERY -HYSTERECTOMY/BILATERAL SALPINGO-OOPHORECTOMY -APPENDECTOMY -CHOLECYSTECTOMY Physical Exam Vital Signs Vital Signs - First Documented Capillary Refill : Height, Weight, BMI Height: 5'9.00" Weight: 149lbs. oz. [id number]; 22.00 BMI Method:Stated General Appearance: WD/WN, no apparent distress HEENT: PERRL/EOMI, normal ENT inspection, TMs normal, pharynx normal, other (Abrasion of the left upper eyebrow, soft tissue tenderness right sided head.) Neck: full range of motion, supple, other (biLateral cervical paraspinal muscle tenderness.) Cardiovascular: regular rate, rhythm, no edema, no gallop, no JVD Respiratory: chest non-tender, lungs clear, normal breath sounds, no respiratory distress, no accessory muscle use Gastrointestinal: normal bowel sounds, non tender, soft, no organomegaly Pelvic: normal external exam, normal adnexa Back: other (Lumbar midline tenderness. No bruising or swelling.) Neurologic/Psychiatric: family court counsellor II-XII nml as tested, no motor/sensory deficits, alert, normal mood/affect, oriented x 3 Skin: normal color, warm/dry [place] Coma Score Best Eye Response: (4) Open Spontaneously Best Verbal Response: (5) Oriented Best Motor Response: (6) Obeys Commands [place] Total: 15 Progress/Results/Core Measures Results/Orders Lab Results Laboratory Tests Test 11/29/22 13:03 11/29/22 13:23 11/29/22 15:03 Range/Units White Blood Count 6.1 4.3-11.0 10^3/uL Red Blood Count 4.98 3.80-5.11 10^6/uL Hemoglobin 15.4 11.5-16.0 g/dL Hematocrit 47 35-52 % Mean Corpuscular Volume 95 80-99 fL Mean Corpuscular Hemoglobin 31 25-34 pg Mean Corpuscular Hemoglobin Concent 33 32-36 g/dL Red Cell Distribution Width 14.6 H 10.0-14.5 % Platelet Count 419 H 130-400 10^3/uL Mean Platelet Volume 9.6 9.0-12.2 fL Immature Granulocyte % (Auto) 0 % Neutrophils (%) (Auto) 57 42-75 % Lymphocytes (%) (Auto) 34 12-44 % Monocytes (%) (Auto) 7 0-12 % Eosinophils (%) (Auto) 2 0-10 % Basophils (%) (Auto) 1 0-10 % Neutrophils # (Auto) 3.5 1.8-7.8 10^3/uL Lymphocytes # (Auto) 2.1 1.0-4.0 10^3/uL Monocytes # (Auto) 0.4 0.0-1.0 10^3/uL Eosinophils # (Auto) 0.1 0.0-0.3 10^3/uL Basophils # (Auto) 0.1 0.0-0.1 10^3/uL Immature Granulocyte # (Auto) 0.0 0.0-0.1 10^3/uL Prothrombin Time 12.1 L 12.2-14.7 SEC INR Comment 0.9 0.8-1.4 Activated Partial Thromboplast Time 25 24-35 SEC Sodium Level 141 135-145 MMOL/L Potassium Level 4.4 3.6-5.0 MMOL/L Chloride Level 109 H 98-107 MMOL/L Carbon Dioxide Level 19 L 21-32 MMOL/L Anion Gap 13 5-14 MMOL/L Blood Urea Nitrogen 12 7-18 MG/DL Creatinine 1.18 0.60-1.30 MG/DL Estimat Glomerular Filtration Rate 47 BUN/Creatinine Ratio 10 Glucose Level 124 H 70-105 MG/DL Calcium Level 9.6 8.5-10.1 MG/DL Corrected Calcium 9.6 8.5-10.1 MG/DL Magnesium Level 2.5 H 1.6-2.4 MG/DL Total Bilirubin 0.6 0.1-1.0 MG/DL Aspartate Amino Transf (AST/SGOT) 23 5-34 U/L Alanine Aminotransferase (ALT/SGPT) 19 0-55 U/L Alkaline Phosphatase 68 40-136 U/L Myoglobin 38.3 10.0-92.0 NG/ML Troponin I < 0.028 <0.028 NG/ML B-Type Natriuretic Peptide 177.0 H <100.0 PG/ML Total Protein 7.9 6.4-8.2 GM/DL Albumin 4.0 3.2-4.5 GM/DL Lipase 28 8-78 U/L Influenza Type A (RT-PCR) Not Detected Not Detecte Influenza Type B (RT-PCR) Not Detected Not Detecte SARS-CoV-2 RNA (RT-PCR) Not Detected Not Detecte Urine Color YELLOW Urine Clarity CLEAR Urine pH 7.0 5-9 Urine Specific [place] 1.015 L 1.016-1.022 Urine Protein NEGATIVE NEGATIVE Urine Glucose (UA) NEGATIVE NEGATIVE Urine Ketones NEGATIVE NEGATIVE Urine Nitrite POSITIVE H NEGATIVE Urine Bilirubin NEGATIVE NEGATIVE Urine Urobilinogen 0.2 < = 1.0 MG/DL Urine Leukocyte Esterase 3+ H NEGATIVE Urine RBC (Auto) TRACE H NEGATIVE Urine RBC 2-5 H /HPF Urine WBC 10-25 H /HPF Urine Squamous Epithelial Cells 10-25 H /HPF Urine Crystals NONE /LPF Urine Bacteria LARGE H /HPF Urine Casts NONE /LPF Urine Mucus NEGATIVE /LPF Urine Culture Indicated YES My Orders Orders - DARELL COLLADO Ct Head/Cervical Spine Wo (11/29/22 13:04) Ct Lumbar Spine Wo (11/29/22 13:04) Ekg Tracing (11/29/22 13:05) Cbc And Automated Diff (11/29/22 13:05) Magnesium (11/29/22 13:05) Chest 1 View, Ap/Pa Only (11/29/22 13:05) Ekg Tracing (11/29/22 13:05) Comprehensive Metabolic Panel (11/29/22 13:05) Myoglobin Serum (11/29/22 13:05) Protime With Inr (11/29/22 13:05) Partial Thromboplastin Time (11/29/22 13:05) Monitor-Rhythm Ecg Trace Only (11/29/22 13:05) Ed Iv/Invasive Line Start (11/29/22 13:05) Lipase (11/29/22 13:05) Bnp [place] (11/29/22 13:05) Troponin I [place] (11/29/22 13:05) Ua Culture If Indicated (11/29/22 13:05) Covid 19 Inhouse Test (11/29/22 13:20) Influenza A And B By Pcr (11/29/22 13:20) Ns Iv 500 Ml (Ns Iv 500 Ml) (11/29/22 14:23) Ns Iv 500 Ml (Ns Iv 500 Ml) (11/29/22 14:23) Urine Culture (11/29/22 15:03) Dexamethasone Injection (Dexamethasone (11/29/22 16:15) General/Regular (11/29/22 Dinner) Nicotine Patch (Nicotine Patch) (11/29/22 18:00) Ciprofloxacin Tablet (Ciprofloxacin Tabl (11/29/22 18:42) Medications Given in ED Current Medications Medications Dose Ordered Sig/Lakisha Route Start Time Stop Time Status Last Admin Dose Admin Dexamethasone Sodium Phosphate 10 mg ONCE ONCE IV 11/29/22 16:15 11/29/22 16:16 DC 11/29/22 16:26 10 MG Nicotine 21 mg ONCE ONCE TD 11/29/22 18:00 11/29/22 18:01 DC 11/29/22 18:09 21 MG Vital Signs/I&O 11/29/22 11/29/22 13:00 13:00 Temp 36.1 36.1 Pulse 98 98 Resp 17 17 B/P (MAP) 147/94 (111) 147/94 (111) Pulse Ox 97 O2 Delivery Room Air Room Air Comment Atrial fibrillation, possible left ventricular hypertrophy, ST deviation marked to abnormality in the anterior lateral leads, 76 bpm, QRS duration 89 minutes, QTc 401 MS Departure Communication (PCP) Reviewed previous ER visits, H&P, lab testing. Patient was evaluated in here in June 2019. Was found to have a right pulmonary nodule concerning for neoplasm. Has not followed up regarding this. History of smoking. Dizziness, frequent falls over the past week. Denies of any chest pain with the falls. Patient on arrival alert and orient x4. GCS of 15. She states that her left side feels more weak over the past week. Her NIH was 0. No appreciation of weakness on the left side. Fell twice yesterday hitting her head. She does have a small abrasion to the left eyebrow and mild contusion to the right temporal head. No crepitus or step-off. Up-to-date on her tetanus. Several falls over the past week. Feels like her legs are wanting to give out. She denies syncope. Cardiac work-up, CT scan of the head cervical neck lumbar spine and general lab work with urinalysis. She had no specific cervical midline tenderness but has some discomfort throughout her cervical paraspinal muscle. She has lumbar midline tenderness. No chest pain short of breath or cough. Vital signs stable. EKG obtained showed atrial fibrillation 76 bpm. Possible left ventricular hypertrophy with ST deviation markedly abnormality in the anterior lateral leads. Appears fairly stable and similar to her last EKG in June 2019. CBC, chemistry grossly unremarkable. Normal troponin. BNP 177. Chest x-ray unremarkable. CT scan lumbar spine negative for fracture. CT scan of the head and cervical neck showed no cervical fractures. CT scan of the head shows new intra-axial low attenuating and perhaps fluid-containing lesions greater on the right with some perilesional vasogenic edema and additional zones of more pronounced white matter hypodensity likely additional foci of edema. Metastatic disease is of concern. There is a mild shift but no sheeba herniation or overt hydrocephalus. No hemorrhaging. Patient received 10 mg of IV Decadron. Urinalysis positive for UTI. Allergic to penicillins and cephalexin. Patient did receive a dose of Cipro oral. Discussed patient with hospitalist Dr. Smith. Do not currently have oncology for the next 2 days. She believes patient will need neurosurgery evaluation and further evaluation by oncology. Patient was discussed with [facility]. Patient was accepted by [facility] Primary Impression: Metastasis to brain Disposition: 02 XFER SHT-TRM HOSP Condition: Stable Transfer BH Medically Cleared for Xfer: Yes Transfer Reason: Exceeds level of care Time Spoke to Accepting Phy: 16:[address] Velásquez Transfer Time: 16:28 Transfer Facility: [facility] Method of Transfer: Air Departure-Patient Inst. Decision time for Depature: 16:28 Referrals: Christo FIELDS DO (PCP/Family) Primary Care Physician DARELL COLLADO Nov 29, 2022 13:12
[2022-11-29 13:21] LABS: CHLORIDE 109 MMOL/L (98-107); POTASSIUM 4.4 MMOL/L (3.6-5.0); SODIUM 141 MMOL/L (135-145)
[2022-11-29 13:22] LABS: CALCIUM 9.6 MG/DL (8.5-10.1)
[2022-11-29 13:23] LABS: GLUCOSE 124 MG/DL (70-105); TOTAL PROTEIN 7.9 GM/DL (6.4-8.2)
[2022-11-29 13:24] LABS: CARBON DIOXIDE 19 MMOL/L (21-32); INR 0.9 (0.8-1.4); PROTHROMBIN TIME PATIENT 12.1 SEC (12.2-14.7)
[2022-11-29 13:25] LABS: BILIRUBIN,TOTAL 0.6 MG/DL (0.1-1.0)
[2022-11-29 13:26] LABS: ALKALINE PHOSPHATASE 68 U/L (40-136); CREATININE SERUM 1.18 MG/DL (0.60-1.30); GFR ESTIMATED 47
[2022-11-29 13:27] LABS: BUN/CREATININE RATIO 10
[2022-11-29 13:29] LABS: ALANINE AMINOTRANSFERASE 19 U/L (0-55)
[2022-11-29 13:30] LABS: MAGNESIUM 2.5 MG/DL (1.6-2.4)
[2022-11-29 13:31] LABS: LIPASE 28 U/L (8-78)
[2022-11-29] MEDS ORDERED: NS IV 500 ML 500 ML IV STA (14:23)
[2022-11-29] MEDS ORDERED: NS IV 500 ML 500 ML ONE (14:23)
--- NOTE | 2022-11-29 14:46 | Diagnostic Imaging Report ---
PROCEDURE: CT lumbar spine without contrast. TECHNIQUE: Multiple contiguous axial images were obtained through the lumbar spine without the use of intravenous contrast. Sagittal and coronal reformations were then performed. Auto Exposure Controls were utilized during the CT exam to meet ALARA standards for radiation dose reduction. INDICATION: Low back pain after fall. COMPARISON: Radiographs from 01/30/2016. CT abdomen from 07/06/2019. FINDINGS: There are post surgical changes from prior posterior fusion of L5-S1 with bilateral pedicle screws and posterior fusion rods. No loosening or hardware complication is seen. There is an interbody disc spacer at L5-S1. There is severe degenerative change at L4-L5 with joint space loss, subchondral sclerosis, and cystlike changes. There are [id number] degenerative changes at L2-L3 and L3-L4. Vertebral body heights are preserved. No acute fracture is seen. There are mild degenerative changes in the sacroiliac joints. No bony fragments or hyperdense fluid collections are seen in the spinal canal. There does appear to be spinal canal stenosis at L3-L4 and L4-L5 and foraminal stenosis at L4-L5 bilaterally. Surrounding soft tissues demonstrate no acute abnormality. There is calcific atherosclerosis of the aorta with multifocal areas of ectasia in the aorta. IMPRESSION: 1. Fusion of L5-S1 with no hardware complication seen. 2. Degenerative changes in the lumbar spine, most severe at L4-L5. 3. Spinal canal and foraminal stenosis as described above. 4. Multifocal ectasia in the abdominal aorta which appears stable since 2019. Dictated by: Dictated on workstation # [id number]
--- NOTE | 2022-11-29 15:00 | Diagnostic Imaging Report ---
INDICATION: Falls, pain. FINDINGS: The lungs are free of infiltrate. Prominent calcifications at the distal right first rib are noted incidentally. Heart size and vascularity are normal. No fracture deformity. IMPRESSION: Unremarkable frontal chest. Dictated by: Dictated on workstation # [id number]
--- NOTE | 2022-11-29 15:20 | Diagnostic Imaging Report ---
PROCEDURE: CT head and CT cervical spine without contrast. TECHNIQUE: Multiple contiguous axial images were obtained through the brain and cervical spine without the use of intravenous contrast. Sagittal and coronal reformations through the cervical spine were then performed. Auto Exposure Controls were utilized during the CT exam to meet ALARA standards for radiation dose reduction. INDICATION: Fall with lacerations with head and neck pain. The injury was one week ago, but the pain complaints persist. COMPARISON: The study is compared with an exam of 07/06/2019. FINDINGS: HEAD: This patient has new fluid-like attenuating intra-axial lesion in the right parieto-occipital lobe posteriorly measuring 5.7 x 3.6 cm in axial plane with a cephalocaudal height of 4.6 cm. Patient has a smaller but similar-appearing lesion in the right frontal lobe measuring 8 mm maximal and in the contralateral left temporal lobe measuring 1.7 x 1.3 cm. While this patient has extensive chronic periventricular white matter disease, a few areas of patchy white matter hypodensity are suspicious for zones of vasogenic edema. There is no hemorrhage and no calvarial fracture deformity. No suspicious lytic or sclerotic bony lesion. No shift or herniation. No evidence for elevated intracerebral pressures. Right hemispheric mass effect results in a mild right to left shifting of the midline structures by 2 mm. No herniation. No acute extra-axial fluid collection. CERVICAL SPINE: No cervical spinal fracture or dislocation. No suspicious lytic or sclerotic bone lesion. No paravertebral mass, hemorrhage, or fluid collection. No appreciable cervical adenopathy. The airway is patent. Some scarring in the right pulmonary apex. The visualized apices appeared nonacute. Craniocervical relationship is normal. IMPRESSION: CT HEAD: New intra-axial low attenuating and perhaps fluid-containing lesions, greater right, with some perilesional vasogenic edema and additional zones of more pronounced white matter hypodensity, likely additional foci of edema. Metastatic disease cannot be excluded; correlative brain MRI with and without contrast recommended. There is mild shift, but no sheeba herniation or overt hydrocephalus. There is no hemorrhage or post-traumatic abnormality identified. CT CERVICAL SPINE: No fracture, malalignment, or suspicious bone lesion. Dictated by: Dictated on workstation # [id number]
[2022-11-29 15:26] LABS: CLARITY,URINE CLEAR; COLOR,URINE YELLOW
[2022-11-29 15:27] LABS: BACTERIA,URINE LARGE /HPF; BILIRUBIN,URINE NEGATIVE (NEGATIVE); GLUCOSE, URINE (UA) NEGATIVE (NEGATIVE); KETONES,URINE NEGATIVE (NEGATIVE); LEUKOCYTE ESTERASE ,URINE 3+ (NEGATIVE); NITRITE,URINE POSITIVE (NEGATIVE); PROTEIN,URINE NEGATIVE (NEGATIVE)
[2022-11-29] MEDS ORDERED: dexAMETHasone INJ 10 MG/ML 1 ML VIAL IV ONE (16:15)
[2022-11-29] MEDS ORDERED: NICOTINE 21 MG PATCH TD ONE (18:00)
[2022-11-29] MEDS ORDERED: CIPROFLOXACIN 500 MG TABLET PO STA (18:42)
[2022-11-29 19:30] VITALS: BP 152/84
== END 2022-11-29 20:02 | disposition short-term general hospital (02) ==
LOC: EDUNIT# 12:43 → ER 12:44
DX: S00.03XA Contusion of scalp, initial encounter (principal); S00.212A Abrasion of left eyelid and periocular area, initial encounter; M54.50 Low back pain, unspecified; R42 Dizziness and giddiness; M54.2 Cervicalgia; I48.91 Unspecified atrial fibrillation; N39.0 Urinary tract infection, site not specified; C56.9 Malignant neoplasm of unspecified ovary; C79.31 Secondary malignant neoplasm of brain; Z88.0 Allergy status to penicillin; Z20.822 Contact with and (suspected) exposure to COVID-19; W01.198A Fall on same level from slipping, tripping and stumbling with subsequent striking against other object, initial encounter; Y93.E1 Activity, personal bathing and showering; Y92.002 Bathroom of unspecified non-institutional (private) residence as the place of occurrence of the external cause
CPT/HCPCS: 36415; 70450; 71045; 72125; 72131; 80053; 81000; 83690; 83735; 83874; 83880; 84484; 85025; 85610; 85730; 87077; 87088; 87186; 87636; 93005; 93041